=== PATIENT | male | born 1940 | race African-American/Black ===

== ENCOUNTER → 2017-01-13 | Outpatient (CLI) | payer MEDICARE ==
--- NOTE | 2017-01-13 12:37 | P.PN ---
Progress Note - Text Patient returns for followup for chronic back pain with radiation to LLE. Patient underwent left TFESI x 3 in mid-2016, which provided some relief for 7- 8 months' interval, but the pain and numbness/tingling began to return approximately 1 month ago. Patient continues on essentially no prescription medications for pain. Patient denies adverse drug effects from medications. Today, pt denies new-onset weakness, bowel/bladder incontinence, or any other signs or symptoms of cauda equina syndrome. There are no signs of acute intoxication, and no indications of medication diversion or overuse. In addition to above, 13-point review of systems is also negative for chest pain , shortness of breath, changes in vision, changes in hearing, new onset weakness , abdominal pain, diarrhea, extreme fatigue, malaise, fever, skin changes, homicidal or suicidal ideation, or bowel or bladder incontinence. Vital Signs: Reviewed in EMR Gen: WDWN, AAOx3, NAD HEENT: NCAT, EOMI, hearing grossly normal Pulm: resp unlabored Abd: soft, NT, ND Neck: supple, trachea midline ROM in flexion lumbar spine: reduced ROM in extension lumbar spine: reduced Lumbar paravertebral tenderness: + Facet loading: + bilateral SI joint tenderness: neg Miguel's test: + L side, neg R side Straight leg raise: + LLE at 5 degrees Lower extremity: decreased ROM dorsiflexion/plantarflexion strength, hip flexion/extension, and knee flexion/extension secondary to pain Neuro: CN II-XII grossly intact, muscle strength lower extremities PRESERVED Imaging: Reviewed in EMR Assessment: 1. lumbar radiculopathy 2. lumbar PLPS 3. chronic pain syndrome Plan: 1. Explanation: Opioid and psychological risk scores were reviewed. Diagnoses , prognoses, and multiple treatment options including but not limited to physical therapy, interventional therapies, adjuvant medical therapies, narcotic medication therapies, and surgery were discussed with the patient and all questions were answered to the patient's satisfaction. 2. Opioid agreement: no opioids prescribed today 3. Counseling: The patient was counseled extensively on BODY MASS INDEX, EXERCISE. Specifically, the patient was instructed regarding the importance of smoking cessation, obesity, and exercise in the context of both chronic pain and overall health. 4. Procedures: left L4-L5 + L5-S1 TFESI 5. Consultations: None 6. Investigations: None 7. Medications: none prescribed 8. Disposition: f/u for procedure as scheduled PQRS measures: 1-Patient's medications are documented in the chart. 2-Tobacco use is negative 3-Patient has not had a pneumococcal vaccine. 4-Advanced care planning discussed, patient unable to give. 5-Opioid contract NOT signed with the patient. 6-Pain positive, follow-up visit or procedure scheduled 7-Patient's blood pressure measured and documented, and patient will follow up with the primary care due to hypertension. 8-Patient's weight was measured, and body mass index ABOVE the normal limits, and counseling was done. Patient instructed to follow up with PCP. 9-Patient WAS NOT identified as an unhealthy alcohol user.
== END ==
LOC: PNWHC3 12:09
PROVIDERS: ATTEND Anesthesiology
DX: M54.16 Radiculopathy, lumbar region (principal); G89.4 Chronic pain syndrome; G97.1 Other reaction to spinal and lumbar puncture; Z87.891 Personal history of nicotine dependence
CPT/HCPCS: 99211

== ENCOUNTER 2017-01-29 07:55 | Day surgery (SDC) | payer MEDICARE ==
[2017-01-27 15:44] VITALS: BMI 25.1
[~2017-01-29 07:55] MED LIST: LACTATED RINGERS 1,000 ML IV SCH
[2017-01-29 08:21] VITALS: RESP 18; TEMP 97.8
[2017-01-29] MEDS ORDERED: IOHEXOL 180 MG/ML 1 ML ML ONE (09:16)
[2017-01-29] MEDS ORDERED: MIDAZOLAM 2 MG/2 ML VIAL ONE (09:16)
[2017-01-29] MEDS ORDERED: DEXAMETHASONE SOD PHOS (MDV) 100 MG/10 ML VIAL ONE (09:16)
[2017-01-29] MEDS ORDERED: fentaNYL (PF) 50 MCG/ML 2 ML AMP ONE (09:16)
--- NOTE | 2017-01-29 09:45 | P.PCN ---
Date of Procedure: 01/29/17 Preoperative Diagnosis: Postoperative Diagnosis: Procedure(s) Performed: PREOPERATIVE DIAGNOSIS:1- Lumbar radiculopathy in left l4-5 , L5-S1 distribution. 2-lumbar spinal stenosis. 3- lumbar spondylosis POSTOPERATIVE DIAGNOSIS: same as pre operative diagnosis PROCEDURE 1. Transforaminal epidural steroid injection under fluoroscopic guidance at Left L4-5 ,L5-S1 levels. 2. Lumbar epidurogram : ANESTHESIA: Local with 1% lidocaine 3 ml ; IV sedation with Versed 1mg and fentanyle 50 micrograms. EBL: Minimal PROCEDURE INDICATION: The patient with low back pain and radiculopathy symptoms unresponsive to conservative treatment. PROCEDURE DESCRIPTION / TECHNIQUE: The patient was seen and identified in the preoperative area. Risks, benefits , complications, and alternatives were discussed with the patient. The patient agreed to proceed with the procedure and signed the consent. IV was started, and vital signs were stable. Patient was taken to the OR and time out was completed. The patient was placed in the prone position on procedure table and a pillow was placed under the abdomen to reduce lumbar lordosis. The lumbosacral area was prepped and draped in the usual sterile fashion. Critical pause was taken. Vital signs were closely monitored during the procedure. Conscious sedation was used during the procedure to decrease patients anxiety. Using oblique fluoroscopy, the chin of the ``Daniel dog at Left L4-5 level was identified, and the skin and deeper tissues just below was localized with 1 % lidocaine. Subsequently, a 25-gauge 3.5-inch spinal needle was advanced under a tunneled view fluoroscopic guidance just underneath the chin of the ``Daniel dog at the Left L4-5 Under lateral fluoroscopy, the needle was then advanced to the posterior border of the Left L4-5 interforaminal space. After negative aspiration of CSF and blood and with no paresthesias, 1 mL ofomnipaque- 240 contrast dye was injected excellent epidurogram and outlining of the left nerve root Subsequently, 3 mL of block solution containing 10 mg Dexamethason and 2 mL of Lidocaine 1% was injected. Needle was removed and the same procedure was repeated at the left L5-S1 level , At the end of the procedure, skin was cleansed, and bandages were applied. COMPLICATIONS: None COMMENTS: DISPOSITION / PLANS: The patient was placed in a supine position and transferred to the recovery area in a stable condition for observation. There was no evidence of lower extremity motor or sensory deficit after the procedure. Patient was discharged from the recovery room after meeting discharge criteria. Home discharge instructions were given to the patient by the staff. The patient was reexamined prior to discharge. Implants: Indications for Procedure: Operative Findings: Description of Procedure:
[2017-01-29] MEDS ORDERED: IV FLUID CONTINUATION 1,000 ML IV ONE (09:47)
[2017-01-29 10:11] VITALS: BP 116/60; PULSE 54
--- NOTE | 2017-01-29 10:24 | FL ---
Fluoroscopy HISTORY: Pain 23 seconds fluoroscopy time supplied to the referring clinician. 2 intraoperative C-arm images docum ent the procedure. See dictated report from anesthesiology.
== END 2017-01-29 10:25 | disposition home or self-care (01) ==
LOC: ORPAIN 07:55
PROVIDERS: ATTEND Specialist
DX: M48.06 Spinal stenosis, lumbar region (principal); M47.26 Other spondylosis with radiculopathy, lumbar region; I10 Essential (primary) hypertension; Z88.5 Allergy status to narcotic agent
CPT/HCPCS: 64483; 64484; 99152; J2250; Q9965; J3010; J1100

== ENCOUNTER 2017-03-05 07:21 | Day surgery (SDC) | payer MEDICARE ==
[2017-03-03 10:49] VITALS: BMI 25.1
[2017-03-05 07:33] VITALS: RESP 16; TEMP 97.9
[2017-03-05] MEDS ORDERED: LIDOCAINE 1% 20 ML VIAL (10MG/ML) FOR IV START INTRADERMA ONE (07:40)
--- NOTE | 2017-03-05 08:26 | P.PCN ---
Date of Procedure: 03/05/17 Preoperative Diagnosis: Lumbar radiculopathy Postoperative Diagnosis: Same as above Procedure(s) Performed: Transforaminal epidural steroid injection at the L4 5 and L5-S1 levels on the left side under fluoroscopic guidance Implants: Anesthesia: other (Local with IV sedation) Surgeon: Marck Parsons Pathology: none sent Condition: stable Disposition: PACU Indications for Procedure: Operative Findings: Description of Procedure: The patient was seen in preoperative holding area consent was obtained then he was brought into the procedure placed in prone position. Skin was prepped with ChloraPrep and draped in a sterile manner. Lidocaine 1% was used to numb the skin up at the target points that were chosen as follows: For 5 transforaminal epidural steroid injection was done first by squaring off the body of the L4 vertebra and then the C-arm was tilted to the left oblique position by about 25 and the target point was at the inferior edge of the L4 pedicle right at the 6 o'clock position. Used 22-gauge 3-1/2 inch Quincke spinal needle for this procedure and after contacting bone at the inferior edge of the L4 pedicle the needle walked off the bone and into the upper part of L4 5 foramen using the lateral view of fluoroscopy, then I injected 0.5 MLS of Omnipaque which showed spread of the dye around the L4 nerve roots and into the epidural space. After that I injected 5 mg of Decadron +1.5 MLS of Marcaine 0.25% the L5-S1 level was then done in the same manner however the C-arm was tilted more cephalad to square off the L5 vertebral body. The total dose of Decadron that was given was 10 mg for this procedure.
[2017-03-05] MEDS ORDERED: IV FLUID CONTINUATION 1,000 ML IV ONE (08:30)
--- NOTE | 2017-03-05 08:40 | FL ---
EXAMINATION TYPE: FL guided pain mgmt statistic DATE OF EXAM: 03/05/2017 CLINICAL HISTORY: Low back pain. TECHNIQUE: Fluoroscopy. COMPARISON: None. FINDINGS: Fluoroscopic guidance was provided during pain relief procedure performed by Dr. Parsons . A total of 21 seconds of fluoroscopic time was utilized during the procedure and 3 spot images are acquired. Images acquired shows needle localization at a few levels in the lower lumbar spine. IMPRESSION: As Above.
[2017-03-05 08:52] VITALS: BP 121/65; PULSE 58
--- NOTE | 2017-03-09 13:06 | CDI ---
Dear Dr. Parsons, What type of sedation was used during this procedure? Your Procedure Note states "other" and the Pain Procedure Record has nothing checked for the Anesthesia Plan. Please provide more specificity, such as moderate conscious sedation. This information is needed for correct reporting purposes. Please contact the customer care manager if you do not understand what is needed from you-- Angelina Waters [phone]. Thank you, Jeniffer BUSTOS
== END 2017-03-05 09:28 | disposition home or self-care (01) ==
LOC: ORPAIN 07:21
PROVIDERS: ATTEND Anesthesiology
DX: M54.16 Radiculopathy, lumbar region (principal); I10 Essential (primary) hypertension; Z88.5 Allergy status to narcotic agent; Z91.09 Other allergy status, other than to drugs and biological substances
CPT/HCPCS: 99152; 64483; 64484; J2250; J1100; J3010

== ENCOUNTER → 2017-03-31 | Outpatient (CLI) | payer MEDICARE ==
--- NOTE | 2017-03-31 10:56 | MR ---
MR brain without contrast HISTORY: Mild cognitive impairment, G 31.84 Multiplanar multisequence imaging through the brain. No comparisons There is no restricted diffusion to suggest subacute ischemia cortical atrophy is likely age-related. Periventricular scattered and confluent hyperintensity on inversion recovery and T2-weighted sequenc es due to chronic small vessel ischemia. Inflammatory change present in the frontal sinus, ethmoid ai r cells, bilateral maxillary sinus, there may be mucus retention cyst or polyp within the maxillary s inuses. Cerebellopontine angles, corpus callosum, pituitary, cervical medullary junction are unremark able. Orbits show symmetric appearance. There are normal vascular flow voids. IMPRESSION: Age-related changes of atrophy and probable chronic small vessel ischemia. Sinus disease.
== END | disposition home or self-care (01) ==
LOC: RADMRIMAIN 09:15
PROVIDERS: ATTEND Psychiatry & Neurology Neurology
DX: G31.1 Senile degeneration of brain, not elsewhere classified (principal); G31.84 Mild cognitive impairment of uncertain or unknown etiology
CPT/HCPCS: 70551

== ENCOUNTER → 2017-04-14 | Outpatient (CLI) | payer MEDICARE ==
[2017-04-14 14:16] VITALS: BP 145/68; PULSE 75; RESP 18; TEMP 98.3
--- NOTE | 2017-04-16 10:05 | P.PN ---
Subjective This is follow-up visit for this patient with a history of severe and chronic low back pain with radiation to the left lower extremity, we have done interventional pain management injection,, left side transforaminal epidural steroid injection at left- sided L4 5 and left L5-S1 , he reported that his pain on the left side improved significantly but his currently is complaining of severe low back pain with radiation towards the right hip area Patient denies any motor or sensory deficit , patient denies any fever or night sweats, denies any change in the bowel movements or urination Physical Examinations : 1-Constitutiona : Cooperative , not in acute distress . 2-HEENT : nech ; supple , no Lymphadenopathy , no Thyromegaly , normal thyroid size . eyes : no ptosis , no icterus, no photophobia . ENT : normal of hearing , normal oropharynx , no Thrush . 3- Respiratory : Chest clear to auscultations Bilaterally , no wheezing , no Rhonchi . 4- Cardiovascular : regular rate and rhythem , S1 , S2 , no S3 , no S4. 5- Gastrointestinal : abdomen soft no tenderness , bowel sounds positive all four quadrents , no organomegally . 6- Genitourinary : Defferred . 7- neurologic : Cranial nerve II to XII intact , no focal neurological deffecit . 8-psychatric : alert , oriented X 3 , appropriate affect , intact judgment and insight . 9-Lymphatic : no Lymphadenopathy . 10- musculoskeltal : exams of the cervical spine = motor strength normal bilateral upper extremities exams of the Lumber spine = motor strength lower extremities ,thigh and legs .5/5 deep tendon reflexes : normal Knee Jerk , normal ankle Jerk . lumber facet Loading Test positive strait leg raising test positive at 30 degree , RT Fabere test positive RT . Range of motion: Range of motion in flexion of the lumbar spine 30 degrees Range of motion range of motion of extension of the lumbar spine 30 Assessment and plan = Lumbar radiculopathy , patient used to have severe low back pain with radiation to the left lower extremity improved after we did left-sided transforaminal epidural steroid injections Currently he is complaining of severe low back pain, with radiation to the right hip area , - diagnoses, prognosis, and treatment options including but not limited to physical therapy, surgical interventions, interventional therapies , and medication management including narcotics and adjuvant medication were discussed with the patient and all the questions answered Patient could benefit from lumbar epidural steroid injections under fluoroscopy guidance (right side injected ) Objective - Vital Signs Vital signs: Vital Signs Temp 98.3 F 04/14/17 14:10 Pulse 75 04/14/17 14:10 Resp 18 04/14/17 14:10 BP 145/68 04/14/17 14:10 Pulse Ox 99 04/14/17 14:10
== END ==
LOC: PNWHC3 13:53
PROVIDERS: ATTEND Specialist
DX: M54.16 Radiculopathy, lumbar region (principal); Z79.891 Long term (current) use of opiate analgesic
CPT/HCPCS: 99211

== ENCOUNTER 2017-05-06 08:22 | Day surgery (SDC) | payer MEDICARE ==
[2017-05-04 16:21] VITALS: BMI 25.1
[2017-05-06 08:37] VITALS: RESP 16; TEMP 97.9
[2017-05-06] MEDS ORDERED: LACTATED RINGERS 1,000 ML IV ONE (08:43)
[2017-05-06] MEDS ORDERED: LIDOCAINE 1% 20 ML VIAL (10MG/ML) FOR IV START INTRADERMA ONE (08:43)
[2017-05-06] MEDS ORDERED: IV FLUID CONTINUATION 1,000 ML IV ONE (10:12)
[2017-05-06 10:29] VITALS: BP 118/69; PULSE 57
--- NOTE | 2017-05-06 11:04 | P.PCN ---
Date of Procedure: 05/06/17 Surgeon: Fernando Mg Pathology: none sent Condition: stable Disposition: PACU Description of Procedure: PREOPERATIVE DIAGNOSIS: Lumbar post laminectomy syndrome. POSTOPERATIVE DIAGNOSIS: Lumbar post laminectomy syndrome. PROCEDURE: 1. Caudal epidural steroid injection under fluoroscopic guidance. 2. Caudal epidurogram. ANESTHESIA: Local with 1% lidocaine; IV sedation with Versed/fentanyl EBL: None. PROCEDURE INDICATION: This is a patient with postlaminectomy syndrome with uncontrolled pain who presents for caudal KRISTEN today. No use of blood thinners. Patient with right sided pain worse than left sided pain. PROCEDURE DESCRIPTION: The patient was seen and identified in the preoperative area. Risks, benefits, complications, and alternatives were discussed with the patient including but not limited to bleeding, infection, nerve damage, incomplete pain relief, and allergic reactions to medications. The patient agreed to proceed with the procedure and signed the consent. IV was started, and vital signs were stable. Patient was taken to the OR and time out was completed. The patient was placed in the prone position on procedure table and a pillow was placed under the abdomen to reduce lumbar lordosis. The lumbosacral area was prepped and draped in the usual sterile fashion. Vital signs were closely monitored during the procedure. Using lateral fluoroscopy the anterior-posterior plates of the sacrum were identified and the skin and deeper tissues corresponding into sacrococcygeal ligament were anesthetized using approximately 3 mL of 1% lidocaine. Then under fluoroscopy, a 3-1/2-inch 20-gauge Tuohy epidural needle/22-guage 3-1/2 inch spinal needle was guided through the sacrococcygeal ligament, and into the epidural space. After negative aspiration, a 1 mL of omnipaque-300 contrast dye was injected with excellent epidurogram. Again after negative aspiration for CSF , blood, and with no paresthesias, a solution containing Decadron 20mg, 2ml of 1 % preservative free lidocaine with 8 ml of preservative free normal saline ( total of 11 ml) solution was injected with washout of epidurogram. Needle was withdrawn intact. Skin was cleansed, and bandage was applied. COMPLICATIONS: None. COMMENTS: DISPOSITION / PLANS: The patient was placed in a supine position and transferred to the recovery area in a stable condition for observation and was discharged from the recovery room after meeting discharge criteria. Home discharge instructions given to the patient by the staff. The patient was reexamined prior to discharge. The patient will schedule a R L4-L5, L:5-S1 TFESI for next visit.
--- NOTE | 2017-05-06 11:07 | FL ---
Fluoroscopy HISTORY: Pain 5 seconds fluoroscopy time supplied to the referring clinician. 3 intraoperative C-arm images docume nt the procedure. See dictated report from anesthesia.
== END 2017-05-06 10:55 | disposition home or self-care (01) ==
LOC: ORPAIN 08:22
PROVIDERS: ATTEND Anesthesiology
DX: G89.29 Other chronic pain (principal); M96.1 Postlaminectomy syndrome, not elsewhere classified; M54.16 Radiculopathy, lumbar region
CPT/HCPCS: 62323; J2250; J1100; Q9965; J3010; 99152

== ENCOUNTER → 2017-09-14 | Outpatient (CLI) | payer MEDICARE ==
[2017-09-14 16:36] LABS: ALT 29 U/L (21-72); AST 24 U/L (17-59); Cholesterol 152 mg/dL (<200); HDL Cholesterol 86 mg/dL (40-60); LDL Cholesterol,Calculated 57 mg/dL (0-99); Triglycerides 45 mg/dL (<150)
== END | disposition home or self-care (01) ==
LOC: LABWHC1 16:01
PROVIDERS: ATTEND Internal Medicine Cardiovascular Disease
DX: E78.2 Mixed hyperlipidemia (principal)
CPT/HCPCS: 36415; 80061; 84450; 84460

== ENCOUNTER → 2018-06-17 | Outpatient (CLI) | payer MEDICARE ==
--- NOTE | 2018-06-17 07:53 | CT ---
EXAMINATION TYPE: CT brain wo con DATE OF EXAM: 06/17/2018 COMPARISON: None HISTORY: Mild cognitive impairment, Headache CT DLP: [address] of the brain was performed. The ventricles, basal cisterns and sulci overlying the cerebral convexities demonstrate mild enlargem ent. There is no evidence for intracranial hemorrhage or sulcal effacement. There is decreased attenuation about the periventricular white matter and deep white matter of both c erebral hemispheres, compatible with chronic small vessel ischemia. Differential diagnosis does inclu de demyelination. No mass effects are seen.No midline shift. Osseous calvarium is intact. Moderate chronic ethmoidal sinusitis. If symptoms persist consider MRI. IMPRESSION: 1. Age related atrophic and chronic small vessel ischemic change without acute intracranial process s een at this time.
== END | disposition home or self-care (01) ==
LOC: RADCTMAIN 07:01
PROVIDERS: ATTEND Psychiatry & Neurology Neurology
DX: G31.1 Senile degeneration of brain, not elsewhere classified (principal); I67.82 Cerebral ischemia
CPT/HCPCS: 70450

== ENCOUNTER → 2018-09-04 | Outpatient (CLI) | payer MEDICARE ==
[2018-09-04 17:56] LABS: ALT 20 U/L (10-49); AST 32 U/L (14-35); Cholesterol 159 mg/dL (0-200); Triglycerides <50.0 mg/dL (0.0-149.0); VLDL Calculation 9.98 mg/dL (5.00-40.00)
== END | disposition home or self-care (01) ==
LOC: LABWHC1 08:14
PROVIDERS: ATTEND Internal Medicine Cardiovascular Disease
DX: E78.2 Mixed hyperlipidemia (principal)
CPT/HCPCS: 36415; 80061; 84450; 84460

== ENCOUNTER → 2019-09-17 | Outpatient (CLI) | payer MEDICARE ==
[2019-09-17 16:40] LABS: ALT 18 U/L (10-49); AST 25 U/L (14-35); Chol/HDL Ratio 1.76; Cholesterol 146 mg/dL (0-200); Triglycerides <50.0 mg/dL (0.0-149.0)
== END | disposition home or self-care (01) ==
LOC: LABWHC1 09:02
PROVIDERS: ATTEND Internal Medicine Cardiovascular Disease
DX: E78.2 Mixed hyperlipidemia (principal)
CPT/HCPCS: 36415; 80061; 84450; 84460

== ENCOUNTER → 2020-04-10 | Outpatient (CLI) | payer MEDICARE ==
[2020-04-10 18:54] LABS: ALT 17 U/L (10-49); AST 25 U/L (14-35); Chol/HDL Ratio 1.97; Cholesterol 150 mg/dL (0-200); Triglycerides <50.0 mg/dL (0.0-149.0)
== END | disposition home or self-care (01) ==
LOC: LABWHC1 08:36
PROVIDERS: ATTEND Internal Medicine Cardiovascular Disease
DX: E78.2 Mixed hyperlipidemia (principal)
CPT/HCPCS: 36415; 80061; 84450; 84460

== ENCOUNTER → 2021-04-01 | Outpatient (CLI) | payer MEDICARE ==
[2021-04-01 12:26] LABS: ALT 17 U/L (10-49); AST 24 U/L (14-35); Chol/HDL Ratio 1.84; Cholesterol 140 mg/dL (0-200); Triglycerides <50.0 mg/dL (0.0-149.0)
== END | disposition home or self-care (01) ==
LOC: LABWHC1 07:45
PROVIDERS: ATTEND Internal Medicine Cardiovascular Disease
DX: E78.2 Mixed hyperlipidemia (principal)
CPT/HCPCS: 36415; 80061; 84450; 84460

== ENCOUNTER → 2021-12-12 | Outpatient (CLI) | payer MEDICARE ==
[2021-12-12 14:36] LABS: Basophils # (A) 0.02 X 10*3/uL (0.00-0.10); Basophils % (A) 0.5 %; Eosinophils # (A) 0.26 X 10*3/uL (0.04-0.35); Eosinophils % (A) 6.4 %; HCT 36.7 % (39.6-50.0); HGB 12.2 g/dL (13.0-17.0); Immature Grans, Automated 0.2 %; Lymphocytes # (A) 0.52 X 10*3/uL (0.90-5.00); Lymphocytes % (A) 12.8 %; MCHC 33.2 g/dL (32.0-37.0); MCV 93.4 fL (80.0-97.0); Mean Platelet Volume 9.3 fL (9.5-12.2); Monocytes % (A) 12.3 %; NRBC Per 100 WBC 0 /100 WBCS (0.0-0.0); Neutrophils # (A) 2.74 X 10*3/uL (1.80-7.70); Neutrophils % (A) 67.8 %; Platelet Count 196 X 10*3/uL (140-440); RBC 3.93 X 10*6/uL (4.40-5.60); RDW 13.1 % (11.5-14.5); WBC 4.05 X 10*3/uL (4.50-10.00)
[2021-12-12 16:29] LABS: ALT 17 U/L (10-49); AST 22 U/L (14-35); Albumin 4.1 g/dL (3.8-4.9); Albumin/Globulin Ratio 2.27 (1.60-3.17); Alkaline Phosphatase 60 U/L (41-126); BUN/Creat Ratio 15.87 Ratio (12.00-20.00); Calcium 9.3 mg/dL (8.7-10.3); Carbon Dioxide 27.1 mmol/L (20.0-27.5); Chloride 98 mmol/L (96-109); Chol/HDL Ratio 2.17 Ratio; Globulin 1.8 g/dL (1.6-3.3); Glucose 103 mg/dL (70-110); LDL Cholesterol,Calculated 72.8 mg/dL (0.0-131.0); Non-African American GFR(CKD) 74.2 (60.0-200.0); Potassium 4.9 mmol/L (3.5-5.5); Sodium 134 mmol/L (135-145); Total Protein 5.9 g/dL (6.2-8.2); VLDL Calculation 12.88 mg/dL (5.00-40.00)
== END | disposition home or self-care (01) ==
LOC: LABWHC1 07:44
PROVIDERS: ATTEND Internal Medicine Geriatric Medicine
DX: Z95.5 Presence of coronary angioplasty implant and graft (principal)
CPT/HCPCS: 36415; 80053; 80061; 84443; 85025

== ENCOUNTER → 2022-04-01 | Outpatient (CLI) | payer MEDICARE ==
[2022-04-01 10:59] LABS: ALT 13 U/L (10-49); AST 26 U/L (14-35); Chol/HDL Ratio 1.91 Ratio; LDL Cholesterol,Calculated 52.4 mg/dL (0.0-131.0)
== END | disposition home or self-care (01) ==
LOC: LABWHC1 07:17
PROVIDERS: ATTEND Internal Medicine Interventional Cardiology
DX: Z95.5 Presence of coronary angioplasty implant and graft (principal)
CPT/HCPCS: 36415; 80061; 84450; 84460

== ENCOUNTER → 2023-12-03 | Outpatient (CLI) | payer MEDICARE ==
[2023-12-03 11:41] LABS: ALT 25 U/L (10-49); AST 36 U/L (14-35); Chol/HDL Ratio 1.75 Ratio; LDL Cholesterol,Calculated 59.2 mg/dL (0.0-131.0); VLDL Calculation 9.42 mg/dL (5.00-40.00)
== END | disposition home or self-care (01) ==
LOC: LABWHC1 07:20
PROVIDERS: ATTEND Internal Medicine Cardiovascular Disease
DX: E78.2 Mixed hyperlipidemia (principal)
CPT/HCPCS: 36415; 80061; 84450; 84460